=== PATIENT | female | born 1945 | race Caucasian/White ===

== ENCOUNTER 2016-11-17 12:24 | Day surgery (SDC) | payer MEDICARE ==
[~2016-11-17] VITALS: Ht 165.1 cm; Wt 46.7 kg
[~2016-11-17 12:24] MED LIST: ADVAIR 250/5028 PUFF IN; ALBUTEROL200 PUFFS/ IH; ALEVE220 MG PO; BENADRYL25 M1 PO; COMBIVENT INH14.7 GM IN; FLEXERIL10 MG PO; LEVAQUIN 750 M750 MG PO; LEVOTHROID0.075 MG PO; NAPROSYN 375MG375 MG PO; NAPROSYN 500MG500 MG PO; PHENERGAN VC +120 ML PO; SIMVASTATIN40 MG PO; TYLENOL ES500 M1 PO; ULTRAM 50 MG TA50 MG PO
--- NOTE | 2016-11-17 13:53 | Operative Note ---
Colonoscopy ([facility]) Procedure date: 11/17/16 Date of : 45 Procedure:Colonoscopy Colonoscopy with cold biopsies Indications: Mrs. Burnham is a 71-year-old female with chronic diarrhea. She reports symptoms for the last 10 or 11 years and will have up to 6 or 7 bowel movements daily. The patient states that she had a normal colonoscopy in [place] in 2012. She has had increased gassiness and bloating. She will feel peristalsis and does have some occasional cramps that preceded the diarrhea. She has lost from 155 pounds down to 105 pounds over the last 3 years. She reports no rectal bleeding. She reports no family history of colitis or colon cancer but does have a cousin with Crohn's disease. She reports no abdominal pain. The patient has had no prior cholecystectomy. Performing Provider: Cuca Boyd MD Referrring Provider: Orly HALL/Santana Ortiz M.D. Sedation: MAC sedation Procedure: Prior to the procedure, a history and physical exam was performed, and patient medications and allergies were reviewed. The risks and benefits of the procedure and the sedation options and risks were discussed with the patient. All questions were answered and informed consent was obtained. Patient identification and proposed procedure were verified by the physician and the nurse. The patient was placed in a left lateral decubitus position. Throughout the procedure, the patient's blood pressure, pulse, and oxygen saturations were monitored continuously. Findings: On digital rectal examination there was normal rectal tone. There were no external hemorrhoids. The colonoscope was introduced through the anal canal to the rectum and advanced to the cecum. The ileocecal valve and appendiceal orifice were identified. The scope was advanced a short distance into the ileum which appeared grossly normal. The scope was then withdrawn into the colon. The cecum, ascending, transverse, descending, sigmoid and rectum were grossly normal. Multiple random biopsies were taken from the RIGHT colon to rule out microscopic/collagenous colitis. There were no mucosal abnormalities identified. Upon retroflexion within the rectum there were grade 1 internal hemorrhoids. Impressions: 1. Normal colonoscopy with intubation of the terminal ileum 2. Grade 1 internal hemorrhoids Recommendations: I will follow up the biopsies. If the patient does have microscopic (lymphocytic or collagenous) colitis, I would recommend Entocort/budesonide. If the biopsies are negative, I would recommend fiber bulk, probiotic and antispasmodic (Librax or Levsin). I would also consider other treatment options including Lotronex or Viberzi. Complications: None EBL (ml): 0 at 1353
--- NOTE | 2016-11-17 14:08 | Anesthesia Record ---
Anesthesia Record Part I Total IV fluids: 600 EBL (ml): 0 Urine Output: 0 B/P: 108/53 % SaO2: 96 Pulse: 56 Resps: 16 Temp: 97.4 Patient is: Drowsy, Stable Stable to PACU at: 1351 (sds) at 1408
--- NOTE | 2016-11-17 14:08 | Anesthesia Record ---
Anesthesia Record Part II Discharge time: 1351 Destination: Same day surgery PACU nurse assessment review? Yes Patient is: Stable Anesthesia complications? No at 1400
[2016-11-17 15:30] VITALS: BP 139/85
== END 2016-11-17 14:41 | disposition home or self-care (01) ==
LOC: SDC 12:24
PROVIDERS: Internal Medicine Gastroenterology
PROC: 0DBE8ZX Excision of Large Intestine, Via Natural or Artificial Opening Endoscopic, Diagnostic (ICD-10-PCS; principal; 2016-11-17 13:30)
DX: R19.7 Diarrhea, unspecified (principal); K64.0 First degree hemorrhoids